=== PATIENT | female | born 1990 | race Two or more races ===

== ENCOUNTER 2018-06-24 13:03 | Emergency (ER) | payer MEDICAID ==
[~2018-06-24] VITALS: Ht 160 cm; Wt 59.0 kg
[2018-06-24 13:20] VITALS: BP 104/66
--- NOTE | 2018-06-24 14:03 | Emergency Room Report ---
History of Present Illness General Chief Complaint: Neck Pain Source: Patient Present Illness HPI 28-year-old female presents to the emergency department complaining of 10 out of 10 in severity pain to the posterior neck primarily on the right side 5 days. Patient reports acute onset when she awoke from her sleep 5 days ago. Patient denies appreciable trauma or fall. Patient denies fevers, chills, headache, photophobia. Patient reports moderate neck stiffness and pain with attempts to turn her head from [id number]. 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 She states that she has taken Tylenol with no relief and she has been massaging the affected area. Allergies: Coded Allergies: No Known Allergies (Unverified , 05/05/16) Patient History Past Medical History: see triage record Past Surgical History: none Pertinent Family History: none Last Menstrual Period: 06/19/18 Reviewed Nursing Documentation: PMH: Agreed; PSxH: Agreed Nursing Documentation-PMH Past Medical History: No Stated History Hx Cardiac Problems: No Hx Cancer: No Hx Gastrointestinal Problems: No Hx Neurological Problems: No Review of Systems All Other Systems: negative except mentioned in HPI Physical Exam Vital Signs Date Time Temp Pulse Resp B/P (MAP) Pulse Ox O2 Delivery O2 Flow Rate FiO2 06/24/18 13:14 98.1 73 18 104/66 99 Room Air Sp02 EP Interpretation: reviewed, normal General Appearance: moderate distress Head: normocephalic, atraumatic Eyes: bilateral eye normal inspection, bilateral eye PERRL ENT: hearing grossly normal, normal voice Neck: full range of motion, no bony tend - no specific midline ttp. , tender lateral - right, other - moderate neck stiffness with attempts to test ROM. pt. has pain as well. some ST swelling noted in the posterior neck Respiratory: chest non-tender, lungs clear, normal breath sounds, speaking full sentences Cardiovascular #1: regular rate, rhythm Musculoskeletal: back normal, gait/station normal, normal range of motion, tender - TTP in the neck with stiffness noted. Neurologic: alert, oriented x3, responsive, motor strength/tone normal, sensory intact, normal gait, speech normal, grossly normal Psychiatric: judgement/insight normal Skin: normal color, no rash, warm/dry, well hydrated Medical Decision Making PA Attestation Dr. Jean is my supervising Physician whom patient management has been discussed with. Diagnostic Impression: Primary Impression: Cervical strain, acute Qualified Codes: S16.1XXA - Strain of muscle, fascia and tendon at neck level , initial encounter Additional Impressions: Neck muscle spasm Acute muscle stiffness of neck ER Course 28-year-old female presents to the emergency department complaining of 10 out of 10 in severity pain to the posterior neck primarily on the right side 5 days. Patient reports acute onset when she awoke from her sleep 5 days ago. Patient denies appreciable trauma or fall. Patient denies fevers, chills, headache, photophobia. Patient reports moderate neck stiffness and pain with attempts to turn her head from [id number]. 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 She states that she has taken Tylenol with no relief and she has been massaging the affected area. Ddx considered but are not limited to Fracture, dislocation, contusion, abscess , Sprain/Strain/Spasm, meningitis, SAH , vertebral artery dissection just to name a few. Vital signs: are WNL, pt. is afebrile H&PE are most consistent with muscle spasm, ORDERS: none required at this time. ED INTERVENTIONS: -Lidoderm patch tp - Motrin PO DISCHARGE: At this time pt. is stable for d/c to home. Will provide printed patient care instructions, and any necessary prescriptions. Care plan and follow up instructions have been discussed with the patient prior to discharge. Last Vital Signs Date Time Temp Pulse Resp B/P (MAP) Pulse Ox O2 Delivery O2 Flow Rate FiO2 06/24/18 13:20 98.1 73 18 104/66 99 Room Air Disposition: HOME, SELF-CARE Condition: Stable Scripts Ibuprofen* (MOTRIN*) 600 Mg Tablet 600 MG ORAL THREE TIMES A DAY, #30 TAB 0 Refills Prov: Dominga Jurado 06/24/18 Methocarbamol* (ROBAXIN*) 500 Mg Tablet 1000 MG PO TID, #42 TAB 0 Refills Prov: Dominga Jurado 06/24/18 Referrals: NOT CHOSEN IPA/,REFERRING (PCP) Departure Forms: Return to Work Return to Work Date: Jun 28, 2018 Work Restrictions: None Return to Full Activity: Jun 28, 2018 Patient Instructions: Muscle Cramps and Spasms, [id number], Soft Tissue Injury of the Neck, [id number] Additional Instructions: Take medications as directed. Follow up with a Primary Care Provider in 3-5 days, even if your symptoms have resolved. --Please review list of primary care clinics, if you do not already have a primary care provider Return sooner to ED if new symptoms occur, or current symptoms become worse. Do not drink alcohol, drive, or operate heavy machinery while taking Robaxin ( Muscle Relaxers) as this may cause drowsiness. - Please note that this Emergency Department Report was dictated using [employer] specialist technology software, occasionally this can lead to erroneous entry secondary to interpretation by the dictation equipment. Dominga Jurado Jun 24, 2018 14:03
[2018-06-24] MEDS ORDERED: IBUPROFEN600 MG ORAL (14:04)
[2018-06-24] MEDS ORDERED: ROBAXIN500 MG PO (14:04)
[2018-06-24 14:11] VITALS: BP 104/66
== END 2018-06-24 14:11 | disposition home or self-care (01) ==
LOC: EMR 13:36
DX: S16.1XXA Strain of muscle, fascia and tendon at neck level, initial encounter (principal); X58.XXXA Exposure to other specified factors, initial encounter; Y92.9 Unspecified place or not applicable; M43.6 Torticollis
CPT/HCPCS: 99283

== ENCOUNTER 2019-02-02 18:43 | Emergency (ER) | payer MEDICAID ==
[~2019-02-02] VITALS: Ht 157.5 cm; Wt 59.9 kg
[~2019-02-02 18:43] MED LIST: IBUPROFEN600 MG ORAL; ROBAXIN500 MG PO
[2019-02-02] MEDS ORDERED: NKM (18:52)
--- NOTE | 2019-02-02 18:57 | NUR ---
ED Nurse Note: PT WALKED IN TO ER TODAY FROM WORK. AOX4. PT C/O RIGHT WRIST PAIN, /, RADIATING TO RIGHT SHOULDER AFTER FALLING TODAY. PT DENIES HEAD TRAUMA OR LOC. FULL ROM OF EXTREMITY AND DIGITS, CAP REFILL <3 SECONDS, CIRCULATION AND SENSATION INTACT, NO DISCOLORATION OR OBVIOUS INJURY NOTED.
[2019-02-02 18:58] VITALS: BP 112/72
--- NOTE | 2019-02-02 19:07 | Emergency Room Report ---
History of Present Illness General Chief Complaint: Upper Extremity Injury Source: Patient Present Illness HPI 28-year-old female with no significant past medical history here complaining of pain in her right wrist and right shoulder after falling at work today. Patient fell on outstretched arm rating the pain 7 out of 10 in her wrist and 3 out of 10 the shoulder pain that they are radiating interchangeably denies tingling and numbness has reduced range of motion has not taken medication for pain as injury occurred 30 minutes ago did not apply ice did not have any head injury and denies loss of consciousness and dizziness. Denies chest pain, shortness of breath, palpitation, abdominal pain, nausea vomiting and all other associated symptoms Allergies: Coded Allergies: No Known Allergies (Unverified , 05/05/16) Patient History Past Medical History: see triage record Past Surgical History: unable to obtain Pertinent Family History: unable to obtain Now: No Immunizations: UTD Reviewed Nursing Documentation: PMH: Agreed; PSxH: Agreed Nursing Documentation-PMH Past Medical History: No Stated History Hx Cardiac Problems: No Hx Cancer: No Hx Gastrointestinal Problems: No Hx Neurological Problems: No Review of Systems All Other Systems: negative except mentioned in HPI Physical Exam Vital Signs Date Time Temp Pulse Resp B/P (MAP) Pulse Ox O2 Delivery O2 Flow Rate FiO2 02/02/19 18:48 98.6 76 16 104/67 (79) 98 Room Air Sp02 EP Interpretation: reviewed, normal General Appearance: normal inspection, well appearing, no apparent distress Head: normocephalic, atraumatic Eyes: bilateral eye normal inspection, bilateral eye PERRL ENT: normal ENT inspection, hearing grossly normal Neck: normal inspection, full range of motion, supple Respiratory: normal inspection, chest non-tender, lungs clear, no rhonchi, no wheezing Cardiovascular #1: normal inspection, regular rate, rhythm, no edema, no murmur , normal capillary refill Cardiovascular #2: 2+ radial (R), 2+ radial (L) Gastrointestinal: normal inspection, soft Genitourinary: no CVA tenderness Musculoskeletal: digits/nails normal, gait/station normal, normal range of motion, swelling - right wrist Neurologic: normal inspection, alert, oriented x3 Psychiatric: normal inspection, judgement/insight normal Skin: normal inspection, normal color, no rash, warm/dry Lymphatic: normal inspection, no adenopathy Medical Decision Making PA Attestation All my diagnosis and treatment plans were reviewed ad discussed with my supervising physician Dr. Wells Diagnostic Impression: Primary Impression: Right wrist sprain ER Course 28-year-old female with no significant past medical history here complaining of pain in her right wrist and right shoulder after falling at work today. Patient fell on outstretched arm rating the pain 7 out of 10 in her wrist and 3 out of 10 the shoulder pain that they are radiating interchangeably denies tingling and numbness has reduced range of motion has not taken medication for pain as injury occurred 30 minutes ago did not apply ice did not have any head injury and denies loss of consciousness and dizziness. Denies chest pain, shortness of breath, palpitation, abdominal pain, nausea vomiting and all other associated symptoms Ddx considered but are not limited to: Right wrist sprain, strain, fracture, right shoulder sprain, strain, fracture Vital signs: are WNL, pt. is afebrile H&PE are most consistent with: right wrist sprain ORDERS: Right shoulder and right wrist x-ray, ibuprofen, naproxen ED INTERVENTIONS: Ibuprofen 400 DISCHARGE: At this time pt. is stable for d/c to home. Will provide printed patient care instructions, and any necessary prescriptions. Care plan and follow up instructions have been discussed with the patient prior to discharge. follow up with a primary care provider for referral to Ortho further imaging may be needed avoid strenuous physical activity wear a wrist and Other X-Ray Diagnostic Results Other X-Ray Diagnostic Results #1: X-Ray ordered: right wrist # of Views/Limited Vs Complete: 2 View Indication: Pain EP Interpretation: Yes PA Xray: Interpretation reviewed, by supervising MD, and agrees with findings. Interpretation: no dislocation, no soft tissue swelling, no fractures Impression: No acute disease Electronically Signed by: maria del carmen antonio PA-C Other X-Ray Diagnostic Results #2: X-Ray ordered: right shoulder # of Views/Limited Vs Complete: 2 View Indication: Other - radiating pain from wrist EP Interpretation: Yes PA Xray: Interpretation reviewed, by supervising MD, and agrees with findings. Interpretation: no dislocation, no fractures Impression: No acute disease Electronically Signed by: maria del carmen antonio pa-c Last Vital Signs Date Time Temp Pulse Resp B/P (MAP) Pulse Ox O2 Delivery O2 Flow Rate FiO2 6/5/19 18:58 98.5 74 17 112/72 99 Room Air Disposition: HOME, SELF-CARE Condition: Stable Scripts Naproxen* (NAPROXEN*) 500 Mg Tablet 500 MG ORAL TWICE A DAY, #20 TAB Prov: Maria Del Carmen Mancilla 02/02/19 Patient Instructions: Wrist Pain Additional Instructions: Follow-up with a primary care provider see your primary doctor for referral to microarray specialist further imaging may be needed avoid strenuous physical activity Maria Del Caremn Mancilla Feb 02, 2019 19:07
--- NOTE | 2019-02-02 19:11 | NUR ---
ED Nurse Note: REPORT GIVEN TO ADA BLAND.
--- NOTE | 2019-02-02 19:45 | NUR ---
ED Nurse Note: Patient is bengali speaking, resting comfortably although she stil reports pain in the right arm. Patient is awaiting discharge instructions.
[2019-02-02] MEDS ORDERED: NAPROXEN500 M2 ORAL (19:52)
[2019-02-02 20:00] VITALS: BP 112/72
--- NOTE | 2019-02-02 20:00 | NUR ---
ED Nurse Note: Patient cleared for discharge, verbalized understanding of discharge instructions. Patient was escorted to discharge desk. Patient departed with all personal belongings with steady gait, A&Ox4. ID band removed.
--- NOTE | 2019-02-04 17:46 | Diagnostic Imaging Report ---
Indication: Right shoulder pain COMPARISON: None Findings: 3 views of the right shoulder were obtained. No acute fractures, malalignment, erosions or periostitis are identified. Soft tissues are unremarkable. Impression: Negative for acute injury
--- NOTE | 2019-02-04 17:46 | Diagnostic Imaging Report ---
Indication: Right wrist pain COMPARISON: None Findings: 3 views of the right wrist were obtained. No acute fractures, malalignment, erosions or periostitis are identified. Soft tissues are unremarkable. Impression: No acute findings.
== END 2019-02-02 20:00 | disposition home or self-care (01) ==
LOC: EMR 19:20
DX: S63.501A Unspecified sprain of right wrist, initial encounter (principal); W19.XXXA Unspecified fall, initial encounter; Y92.9 Unspecified place or not applicable; Y99.0 Civilian activity done for income or pay; M25.511 Pain in right shoulder
CPT/HCPCS: 99284